=== PATIENT | female | born 1950 | race Caucasian/White ===

== ENCOUNTER 2017-04-16 09:06 | Outpatient (CLI) | payer MEDICARE ==
--- NOTE | 2017-05-02 12:24 | MMO ---
BILATERAL SCREENING MAMMOGRAM: HISTORY: Annual screening exam. COMPARISON: Exams from 04/18/2016 and 10/26/2014. FINDINGS: The films are reviewed with the assistance of computer aided detection. There are scattered fibroglandular changes of both breasts. There are benign calcifications seen wit hin the left breast. There is no dominant mass, suspicious calcification, or other signs of malignan cy. IMPRESSION: BI-RADS Category 2: Benign findings. POS: VIRAL
== END 2017-04-16 09:07 | disposition home or self-care (01) ==
LOC: SCSMAMMO 09:06
PROVIDERS: ATTEND Nurse Practitioner Family
DX: Z12.31 Encounter for screening mammogram for malignant neoplasm of breast (principal)
CPT/HCPCS: 77067; G0202